=== PATIENT | male | born 1985 | race Caucasian/White ===

== ENCOUNTER 2018-06-28 17:26 | Emergency (ER) | payer BC ==
[2018-06-28] MEDS ORDERED: NS 1,000 ML IV ONE (17:58)
[2018-06-28 18:30] LABS: PLATELET COUNT 218 10^3/uL (150-400)
--- NOTE | 2018-06-28 19:12 | EDPHY ---
H & P Time Seen by Provider: 06/28/18 17:57 HPI/ROS: HPI Syncope, shortness of breath. 32-year-old male by private vehicle. This patient reports that Monday he was hiking with his girlfriend. After this they were driving home. He reports that he inhaled a large hit of marijuana. He reports after this he became lightheaded and had a brief syncopal episode. He reports that since this time he is felt fatigued and very low on energy. He reports today he has felt more short of breath. He has a history of a spontaneous pneumothorax on the left side x2. He is concerned now that he also has a pneumothorax. ROS: Constitutional: No fever, no chills. As above. Eyes: No discharge. No changes in vision. ENT: No sore throat. No nasal congestion or rhinorrhea. Respiratory: No cough. As above. Cardiac: No chest pain, no palpitations. Gastrointestinal: No abdominal pain, no vomiting, no diarrhea. Genitourinary: No hematuria. No dysuria or increased frequency with urination. Musculoskeletal: No back pain. No neck pain. No myalgias or arthralgias. Skin: No rashes. Neurological: No headache. No focal weakness or altered sensation. Past medical history: As above. Right shoulder surgery x2. Social history: Smokes cigarettes. Smokes marijuana. Social alcohol. Currently here by himself. Physical Exam: General Appearance: Alert, he appears calm and relaxed. This patient is responding to questions appropriately and in full sentences. This patient appears well-hydrated and well-nourished. Eyes: Pupils equal and round no pallor or injection. No lid edema, erythema or injection. Respiratory: There are no retractions, lungs are clear to auscultation with good air movement bilaterally. No tachypnea. Cardiovascular: Regular rate and rhythm. No murmur. Gastrointestinal: Abdomen is soft and nontender, no masses, bowel sounds normal. No focal tenderness at McBurney's point. No Baker sign. Neurological: Motor sensory function is grossly intact. Cranial nerves are normal. Gait is normal. Skin: Warm and dry, no rashes. Musculoskeletal: Neck is supple and nontender. Extremities are symmetrical. All joints range without pain or impingement. Psychiatric: No agitation. No depression. Database: EKG: EKG time is 6:23 p.m.; EKG shows a narrow complex normal sinus rhythm with a ventricular rate of 60. The SD, QRS, QT intervals are within normal limits. There are no ST-T wave changes indicative of ischemic or injury pattern. No evidence of right heart strain. No evidence of WPW, hypertrophic cardiomyopathy , Brugada syndrome. Interpreted by me. Imaging: Chest x-ray PA and lateral: The cardiac mediastinal silhouette is normal. No evidence of infiltrate or pneumothorax. No acute cardiopulmonary disease process noted. Interpreted by me. Procedures: Emergency department course: Triage vital signs reviewed and are normal. An IV was established. Patient was placed on a phototypesetting equipment monitor. An EKG was obtained and reviewed by myself. The patient will be given 1 L of IV normal saline over the next hour. Chest x- ray to be obtained. Patient endorses workup. 7:15 p.m., the patient was re-evaluated, resting comfortably at this time. His vital signs have remained normal. I discussed the results of his emergency department workup. I feel that a cardiac etiology of his syncope is unlikely. I also feel pneumothorax and pulmonary embolism are unlikely. He feels comfortable going home at this time and I feel he is safe for discharge. I discussed follow-up through his primary care physician for further evaluation. Return to emergency department precautions were thoroughly reviewed with him. All of his questions were answered. The patient was discharged from the emergency department in good condition. Differential Diagnosis: The differential diagnosis on this patient includes but is not limited to vasovagal syncope, noncardiac syncope. Pneumothorax, pulmonary embolism, acute coronary syndrome, pneumonia, CHF, reactive airway disease unlikely. This represents a partial list of diagnoses considered. These considerations are based on history, physical exam, past history, reassessment and diagnostic testing. Smoking Status: Current some day smoker Constitutional: Initial Vital Signs Temperature (C) 36.3 C 06/28/18 17:32 Heart Rate 72 06/28/18 17:32 Respiratory Rate 16 06/28/18 17:32 Blood Pressure 124/86 H 06/28/18 17:32 O2 Sat (%) 96 06/28/18 17:32 O2 Delivery Mode Room Air Allergies/Adverse Reactions: No Known Allergies Allergy (Unverified 06/28/18 17:32) Home Medications: Medication Instructions Recorded traZODone 06/28/18 Medical Decision Making - Diagnostics Imaging Results: Imaging Impressions Chest X-Ray 06/28/18 18:26 Impression: There is no acute intrathoracic abnormality identified. Specifically , there is no pneumothorax identified. - Data Points Laboratory Results: Laboratory Results 06/28/18 18:15 06/28/18 18:15 06/28/18 06/28/18 06/28/18 18:15 18:15 18:15 WBC 6.87 10^3/uL 10^3/uL (3.80-9.50) RBC 5.22 10^6/uL 10^6/uL (4.40-6.38) Hgb 15.8 g/dL g/dL (13.7-17.5) Hct 43.9 % % (40.0-51.0) MCV 84.1 fL fL (81.5-99.8) MCH 30.3 pg pg (27.9-34.1) MCHC 36.0 g/dL g/dL (32.4-36.7) RDW 12.5 % % (11.5-15.2) Plt Count 218 10^3/uL 10^3/uL (150-400) MPV 9.8 fL fL (8.7-11.7) Neut % (Auto) 56.4 % % (39.3-74.2) Lymph % (Auto) 31.1 % % (15.0-45.0) [place] % (Auto) 9.5 % % (4.5-13.0) Eos % (Auto) 2.5 % % (0.6-7.6) Baso % (Auto) 0.4 % % (0.3-1.7) Nucleat RBC Rel Count 0.0 % % (0.0-0.2) Absolute Neuts (auto) 3.87 10^3/uL 10^3/uL (1.70-6.50) Absolute Lymphs (auto) 2.14 10^3/uL 10^3/uL (1.00-3.00) Absolute Monos (auto) 0.65 10^3/uL 10^3/uL (0.30-0.80) Absolute Eos (auto) 0.17 10^3/uL 10^3/uL (0.03-0.40) Absolute Basos (auto) 0.03 10^3/uL 10^3/uL (0.02-0.10) Absolute Nucleated RBC 0.00 10^3/uL 10^3/uL (0-0.01) Immature Gran % 0.1 % % (0.0-1.1) Immature Gran # 0.01 10^3/uL 10^3/uL (0.00-0.10) D-Dimer 0.28 ug/mLFEU ug/mLFEU (0.00-0.50) Sodium 135 mEq/L mEq/L (135-145) Potassium 3.6 mEq/L mEq/L (3.5-5.2) Chloride 101 mEq/L mEq/L (97-110) Carbon Dioxide 26 mEq/l mEq/l (22-31) Anion Gap 8 mEq/L mEq/L (6-14) BUN 11 mg/dL mg/dL (7-23) Creatinine 0.8 mg/dL mg/dL (0.7-1.3) Estimated GFR > 60 Glucose 85 mg/dL mg/dL (70-100) Calcium 9.1 mg/dL mg/dL (8.5-10.4) Medications Given: Discontinued Medications Sodium Chloride (Ns) 1,000 mls @ 0 mls/hr IV EDNOW ONE; Wide Open PRN Reason: Protocol Stop: 06/28/18 17:59 Last Admin: 06/28/18 18:16 Dose: 1,000 mls Departure - Departure Disposition: Home, Routine, Self-Care Clinical Impression: Syncope, Dyspnea Condition: Good Instructions: Syncope (ED) Additional Instructions: Read and follow provided instructions. Follow-up with your primary care physician in 1-2 days for re-evaluation as discussed. I have also provided you referral information to primary care physicians in the [place] area as you're requested. Avoid smoking cigarettes, marijuana or other substances. Return to the emergency department for worsening symptoms, worsening shortness of breath, fainting, chest pain or other serious concerns. Referrals: GODFRE[facility] FERRARA [Other] - As per Instructions Daysi Win MD [Medical Doctor] - As per Instructions Julito Castañeda MD [[facility] [place] Primary Care Provider] - As per Instructions Ivan Barnes MD [[facility] [place] Primary Care Provider] - As per Instructions
[2018-06-28 19:38] VITALS: BP 143/89
--- NOTE | 2018-06-28 20:58 | CPEKG ---
Test Reason : OPEN Blood Pressure : / mmHG Vent. Rate : 060 BPM Atrial Rate : 060 BPM P-R Int : 212 ms QRS Dur : 088 ms QT Int : 412 ms P-R-T Axes : 045 074 030 degrees QTc Int : 412 ms Sinus rhythm Prolonged HI interval Confirmed by Zaira Calle ([id number]) on 06/28/2018 8:57:34 PM Referred By: Zaira Calle Confirmed By:Zaira Calle
== END 2018-06-28 19:38 | disposition home or self-care (01) ==
DX: R55 Syncope and collapse (principal); R06.00 Dyspnea, unspecified; E86.9 Volume depletion, unspecified; F12.90 Cannabis use, unspecified, uncomplicated

== ENCOUNTER → 2018-07-12 | Outpatient (CLI) | payer BC | LOC: BMCIMAGING 17:01 | PROVIDERS: ATTEND Family Medicine | DX: M25.561 Pain in right knee (principal) ==